=== PATIENT | female | born 1985 ===

== ENCOUNTER 2018-03-30 05:41 | Emergency (ER) | payer MEDICARE ==
[2018-03-30 06:15] LABS: Basophils # (Auto) 0.1 K/mm3 (0.0-0.1); Basophils % (Auto) 0.8 % (0.0-1.8); Eosinophils # (Auto) 0.2 K/mm3 (0.0-0.4); Eosinophils % (Auto) 2.2 % (0.0-4.3); Hematocrit 42.2 % (30.3-42.9); Hemoglobin 14.1 gm/dl (10.1-14.3); Lymphocytes % (Auto) 28.1 % (13.4-35.0); Mean Corpuscular HGB Conc 33 % (30-34); Mean Corpuscular Volume 95 fl (79-97); Monocytes # (Auto) 0.9 K/mm3 (0.0-0.8); Monocytes % (Auto) 8.7 % (0.0-7.3); Platelet Count 319 K/mm3 (140-440); Red Blood Count 4.44 M/mm3 (3.65-5.03); Red Cell Distribution Width 13.2 % (13.2-15.2)
[2018-03-30 06:31] LABS: BUN/Creatinine Ratio 14; Blood Urea Nitrogen 11 mg/dL (7-17); Hemolysis Index 6
[2018-03-30] MEDS ORDERED: DELTASONE PO ONE (07:35)
[2018-03-30] MEDS ORDERED: TORADOL IM ONE (07:35)
--- NOTE | 2018-03-30 07:40 | Emergency Department Report ---
HPI - General Chief Complaint: Back Pain/Injury Time Seen by Provider: 03/30/18 07:21 - HPI HPI: This is a 32-year-old female with no medical history who presents to ED complaining of lower back pain for the past 3 days. Patient states pain is constant in her lower back. Patient denies any recent trauma or injuries or falls. Patient states pain started around May 2017 as name intermittently hurting since then. She denies dysuria, abdominal pain, any other symptoms ED Past Medical Hx - Past Medical History Previous Medical History?: Yes Hx Congestive Heart Failure: No Hx Diabetes: No Hx Headaches / Migraines: Yes (migraines) Hx Psychiatric Treatment: Yes (Schizophrenia, bipolar) Hx Asthma: Yes (as a child) Hx COPD: No Additional medical history: schizpohrenia, bipolar - Surgical History Past Surgical History?: Yes Additional Surgical History: x 3, ectopic,bowel - Social History Smoking Status: Former Smoker Substance Use Type: None - Medications Home Medications: Home Medications Medication Instructions Recorded Confirmed Last Taken Type Lurasidone HCl [Latuda] 80 mg PO BID 08/20/13 06/07/17 06/05/17 History oxyCODONE /ACETAMINOPHEN [Percocet 1 tab PO Q4HR #45 tab 12/11/14 06/07/17 06/07/17 07:00 Rx 5/325] Aspirin/Acetaminophen/Caffeine 1 each PO PRN 06/07/17 06/07/17 06/03/17 History [Excedrin Migraine Caplet] OXcarbazepine [Trileptal] 300 mg PO BID 06/07/17 06/07/17 06/06/17 History amLODIPine [Norvasc] 5 mg PO DAILY 06/07/17 06/07/17 06/06/17 History Docusate Sodium [Colace] 100 mg PO BID PRN #60 capsule 06/09/17 Unknown Rx Oxycodone HCl/Acetaminophen 1 each PO Q6HR PRN #40 tablet 06/09/17 Unknown Rx [Percocet 7.5/325 mg] Simethicone 80 mg PO Q6H PRN #30 tab.chew 06/09/17 Unknown Rx Cyclobenzaprine [Flexeril] 10 mg PO QHS PRN #20 tablet 03/30/18 Unknown Rx Ibuprofen [Motrin 800 MG tab] 800 mg PO Q8HR PRN #30 tablet 03/30/18 Unknown Rx ED Review of Systems ROS: Stated complaint: BACK PAIN Other details as noted in HPI Comment: All other systems reviewed and negative Physical Exam - Physical Exam Vital Signs: Vital Signs 03/30/18 05:50 Temperature 99.4 F Pulse Rate 91 H Respiratory 18 Rate Blood Pressure 142/97 O2 Sat by Pulse 98 Oximetry Physical Exam: GENERAL: Alert and oriented x3, no apparent distress, Normal Gait, atraumatic. HEAD: Head is normocephalic and a-traumatic. NECK: Supple. Non edematous, No lymphadenopathy or thyromegaly. No C-spine tenderness, full range of motion LUNGS: Symetrical with respiration, No wheezing, no rales or crackles, CTAB. HEART: S1, S2 present, regular rate and rhythm without murmur, no rubs, no gallops. Non tender to palpation BACK: Full range of motion, no spinal tenderness, Tenderness to palpation of the trapezius muscles and latissimus dorsi muscles of the back NEUROLOGIC: The patient is cooperative with no focal neurologic deficits. SKIN: Warm and dry, No lesions, No ulceration or induration present. ED Course Vital Signs 03/30/18 05:50 Temperature 99.4 F Pulse Rate 91 H Respiratory 18 Rate Blood Pressure 142/97 O2 Sat by Pulse 98 Oximetry ED Medical Decision Making - Lab Data Result diagrams: 03/30/18 06:03 03/30/18 06:03 - Medical Decision Making 3-year-old female presents to ED with low back pain most likely due to lumbar radiculopathy ED course: Patient received Toradol in ED. for pain Labs are within normal limits, test negative, urinalysis 1+ bacteria, elevated WBCs mildly. Will not treat as patient has no symptoms and leukocyte esterase and nitrate is negative Vital signs are normal patient is in no acute distress Discussed with patient follow-up with primary care physician. Discussed the patient and take medications as prescribed. Patient has no neurological deficit. Patient is alert and oriented 3 and understands all instructions given. Discussed drowsiness effect of Flexeril makes her drowsy and not to operate machinery while taking flexeril - Differential Diagnosis lumbar disc herniation, lumbar radiculopathy, urinary tract infection Critical care attestation.: If time is entered above; I have spent that time in minutes in the direct care of this critically ill patient, excluding procedure time. ED Disposition Clinical Impression: Lumbar radiculopathy Disposition: TO HOME OR SELFCARE Is pt being admited?: No Does the pt Need Aspirin: No Condition: Stable Instructions: Trigger Point Pain (ED), Lumbar Radiculopathy (ED), Musculoskeletal Pain (ED) Additional Instructions: Make sure to follow up with the primary care physician as discussed. Take all your medications as you've been prescribed. If you have any worsening symptoms or develop new symptoms please return to ED immediately. Prescriptions: Cyclobenzaprine [Flexeril] 10 mg PO QHS PRN #20 tablet PRN Reason: Muscle Spasm Ibuprofen [Motrin 800 MG tab] 800 mg PO Q8HR PRN #30 tablet PRN Reason: Pain Referrals: TAHIRA ARROYO MD [Primary Care Provider] - 3-5 Days MEGA LAW MD [Staff Physician] - 3-5 Days Forms: Work/School Release Form
[2018-03-30 07:53] LABS: Bacteria,Urine 1+ /HPF (Negative); Bilirubin,Urine NEG (Negative); Blood,Urine SM (Negative); Color,Urine Yellow (Yellow); Mucus,Urine 1+ /HPF; Protein,Urine <15 mg/dL mg/dL (Negative); Urobilinogen,Urine < 2.0 mg/dL (<2.0)
[2018-03-30 08:46] VITALS: BP 153/70
== END 2018-03-30 08:38 | disposition home or self-care (01) ==
LOC: MERGE 05:41 → ED 05:41
DX: M54.16 Radiculopathy, lumbar region (principal); F31.9 Bipolar disorder, unspecified; F20.9 Schizophrenia, unspecified; G43.909 Migraine, unspecified, not intractable, without status migrainosus; J45.909 Unspecified asthma, uncomplicated; Z87.891 Personal history of nicotine dependence
CPT/HCPCS: 36415; 80048; 81001; 84703; 85025; 96372; 99283; J1885; J7512

== ENCOUNTER 2018-07-10 08:26 | Emergency (ER) | payer MEDICARE ==
[2018-07-10 08:34] VITALS: BP 151/96
--- NOTE | 2018-07-10 09:57 | Emergency Department Report ---
HPI - General Chief Complaint: Back Pain/Injury Time Seen by Provider: 07/10/18 09:33 - HPI HPI: There is [id number] female who has a history of chronic leg pain from sciatica, muscle spasms, fibromyalgia who presents ED stating that she started expressing worsening pain around 6:50 AM this morning. Patient denies any injury or trauma. Patient states that she is taking gabapentin it's not really walk while working so she stopped taking gabapentin. She denies fevers/chills nausea vomiting/dysuria Patient says this is a follow-up with her doctor in a couple weeks. ED Past Medical Hx - Past Medical History Hx Hypertension: Yes Hx Congestive Heart Failure: No Hx Diabetes: No Hx Headaches / Migraines: Yes (migraines) Hx Psychiatric Treatment: Yes (Schizophrenia, bipolar, Depression) Hx Asthma: Yes (as a child) Hx COPD: No Additional medical history: schizpohrenia, bipolar - Surgical History Additional Surgical History: x 3, ectopic,bowel - Social History Smoking Status: Former Smoker Substance Use Type: Alcohol - Medications Home Medications: Home Medications Medication Instructions Recorded Confirmed Last Taken Type Lurasidone HCl [Latuda] 80 mg PO BID 08/20/13 06/07/17 06/05/17 History oxyCODONE /ACETAMINOPHEN [Percocet 1 tab PO Q4HR #45 tab 12/11/14 06/07/17 06/07/17 07:00 Rx 5/325] Aspirin/Acetaminophen/Caffeine 1 each PO PRN 06/07/17 06/07/17 06/03/17 History [Excedrin Migraine Caplet] OXcarbazepine [Trileptal] 300 mg PO BID 06/07/17 06/07/17 06/06/17 History amLODIPine [Norvasc] 5 mg PO DAILY 06/07/17 06/07/17 06/06/17 History Docusate Sodium [Colace] 100 mg PO BID PRN #60 capsule 06/09/17 Unknown Rx Oxycodone HCl/Acetaminophen 1 each PO Q6HR PRN #40 tablet 06/09/17 Unknown Rx [Percocet 7.5/325 mg] Simethicone 80 mg PO Q6H PRN #30 tab.chew 06/09/17 Unknown Rx Cyclobenzaprine [Flexeril] 10 mg PO QHS PRN #20 tablet 03/30/18 Unknown Rx Ibuprofen [Motrin 800 MG tab] 800 mg PO Q8HR PRN #30 tablet 03/30/18 Unknown Rx Ibuprofen [Ibu] 800 mg PO Q8H PRN #20 tablet 06/07/18 Unknown Rx methOCARBAMOL [Robaxin TAB] 500 mg PO Q6H PRN #14 tablet 06/07/18 Unknown Rx Carisoprodol [Soma] 250 mg PO BID #20 tablet 07/10/18 Unknown Rx ED Review of Systems ROS: Stated complaint: RT KNEE/RT SIDE PAIN Other details as noted in HPI Comment: All other systems reviewed and negative Physical Exam - Physical Exam Vital Signs: Vital Signs 07/10/18 08:33 Temperature 98.1 F Pulse Rate 118 H Respiratory 18 Rate Blood Pressure 151/96 [Right] O2 Sat by Pulse 100 Oximetry Physical Exam: GENERAL: Alert and oriented x3, no apparent distress, Normal Gait, atraumatic. HEAD: Head is normocephalic and a-traumatic. NECK: Supple. Non edematous, No lymphadenopathy or thyromegaly. LUNGS: Symetrical with respiration, No wheezing, no rales or crackles, CTAB. HEART: S1, S2 present, regular rate and rhythm without murmur, no rubs, no gallops. Non tender to palpation BACK: Full range of motion, no spinal tenderness, Tenderness to palpation of the trapezius muscles and latissimus dorsi muscles of the back EXTREMITIES/MUSCULOSKELETAL: No cyanosis, clubbing, rash, lesions or edema. Full ROM bilaterally. UE/LE Pulses 2+ bilaterally. LE and UE 5+ strength bilaterally, NEUROLOGIC: The patient is cooperative with no focal neurologic deficits. SKIN: Warm and dry, No lesions, No ulceration or induration present. ED Course Vital Signs 07/10/18 08:33 Temperature 98.1 F Pulse Rate 118 H Respiratory 18 Rate Blood Pressure 151/96 [Right] O2 Sat by Pulse 100 Oximetry ED Medical Decision Making - Medical Decision Making 32 year-old female presents to ED with muscle spasms/sciatica ED course: Vital signs are normal patient is in no acute distress Discussed with patient follow-up with primary care physician. Discussed the patient and take medications as prescribed. Patient has no neurological deficit. Patient is alert and oriented 3 and understands all instructions given. Discussed to discontinue gabapentin if it's no longer effective and follow up with her PCP/psychiatrist Critical care attestation.: If time is entered above; I have spent that time in minutes in the direct care of this critically ill patient, excluding procedure time. ED Disposition Clinical Impression: Sciatica, Chronic back pain, Fibromyalgia Disposition: TO HOME OR SELFCARE Is pt being admited?: No Does the pt Need Aspirin: No Condition: Stable Instructions: Sciatica (ED), Lumbar Radiculopathy (ED) Additional Instructions: Make sure to follow up with the primary care physician as discussed. Take all your medications as you've been prescribed. If you have any worsening symptoms or develop new symptoms please return to ED immediately. Prescriptions: Carisoprodol [Soma] 250 mg PO BID #20 tablet Referrals: TAHIRA ARROYO MD [Primary Care Provider] - 3-5 Days Forms: Work/School Release Form(ED) Time of Disposition: 10:04
[2018-07-10] MEDS ORDERED: TORADOL IM ONE (10:19)
[2018-07-10] MEDS ORDERED: DELTASONE PO ONE (10:19)
== END 2018-07-10 10:35 | disposition home or self-care (01) ==
LOC: MERGE 08:26 → ED 08:26
DX: G89.29 Other chronic pain (principal); M54.9 Dorsalgia, unspecified; M54.30 Sciatica, unspecified side; M79.7 Fibromyalgia; I10 Essential (primary) hypertension; G43.909 Migraine, unspecified, not intractable, without status migrainosus; J45.909 Unspecified asthma, uncomplicated; Z87.891 Personal history of nicotine dependence; Z79.82 Long term (current) use of aspirin
CPT/HCPCS: 96372; 99282; J1885; J7512

== ENCOUNTER 2018-07-12 12:06 | Emergency (ER) | payer MEDICARE ==
--- NOTE | 2018-07-12 12:20 | Emergency Department Report ---
Blank Doc - Documentation Documentation: 32 y/o female comes in for chronic pain that has been going on for years. Is on Gabapentin. Is follow up by mental health provider for bipolar.
[2018-07-12] MEDS ORDERED: CATAPRES PO ONE (13:02)
[2018-07-12] MEDS ORDERED: DELTASONE PO ONE (13:02)
[2018-07-12] MEDS ORDERED: SOMA PO ONE (13:03)
--- NOTE | 2018-07-12 13:04 | Emergency Department Report ---
ED Back Pain/Injury HPI - General Chief Complaint: Pain General Stated Complaint: BODY PAIN Time Seen by Provider: 07/12/18 12:57 Source: patient Limitations: No Limitations - History of Present Illness Initial Comments: Patient is a 32-year-old -[place] female who is well known to the emergency room. Please see medical decision-making section with cross referencing MRN account. Patient was seen here [address] Escalona given Soma for her chronic pain. She initially told me she did not get the medicine filled because of insurance coverage. However, she is a private pay patient and does not have insurance. Upon looking in the PMD she did in fact get the Soma medication and paid for out of pocket. Which according to the PMD she does often. Patient states that when confronted with the PMD that she didn't get it filled just does not working. She states she's been doubling up on the doses. This is in addition to her home Ativan and Restoril which she did not tell me she was taking. She did tell me she was taking other psych meds including Zoloft and Abilify: Along with gabapentin. Appears that there is some drug-seeking behavior with this patient who has been diagnosed with fibromyalgia. When asked by home she becomes very histrionic intelligible coming to the emergency room, Dr. Perez and Dr. Ashby. It sounds like she may have seen doctors in the past that have fired her as a patient due to her pain. Referred PMD for years history of narcotic use. However this year there is no narcotics on record in the database. She does have benzos. Them concerned with her muscle relaxers and benzos that the additive effect could be detrimental. I explained this to the patient. She states Flexeril does not work. She once him on a higher dose. She's had Robaxin in the past and it don't work. Patient denies any trauma. She denies dysuria. She has no CVA tenderness. Her vital signs are stable. She has no fever. No tachycardia or hypotension. Infection was hypertensive on admission but on recheck her blood pressure was down. Patient is ambulatory. She comes to the ER with her who is her ride today. Also coming the patient or HER-2 small children. The third 9-year-old is at school. 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 Complaint: back pain -: Gradual, year(s) Similar Symptoms Previously: Yes Place: home Associated Symptoms: denies other symptoms - Related Data Previous Rx's Medication Instructions Recorded Last Taken Type predniSONE [Deltasone] 20 mg PO DAILY #5 tablet 07/12/18 Unknown Rx Allergies Allergy/AdvReac Type Severity Reaction Status Date / Time No Known Allergies Allergy Verified 07/12/18 13:04 ED Review of Systems ROS: Stated complaint: BODY PAIN Other details as noted in HPI Comment: All other systems reviewed and negative ED Past Medical Hx - Past Medical History FIBROMyalgia; bipolar, htn, chronic pain Family history: no significant family history ED Back Pain Physical Exam - Exam General: Vital signs noted. No distress. Alert and acting appropriately. WDWN patient in NAD VS per RN flow sheet Alert and oriented to person, place and time. S1-S2. No S3 or S4. No systolic or diastolic murmur. No JVD. No pitting edema. Lungs clear to auscultation bilaterally anteriorly and posteriorly. Abdomen soft nontender bowel sounds 4. No CVA tenderness Moves all extremities well. Back/Abdomen: No Abdominal Tenderness, No Perithoracic Tenderness, No Perilumbar Tenderness, No Sacroiliac Tenderness, No Flank Tenderness, No Straight Leg Raise Pain Neuro: Yes Normal Sensation, Yes Normal DTR's, Yes Normal Gait, No Motor We akness ED Course Vital Signs 07/12/18 12:18 Temperature 98.7 F Pulse Rate 114 H Respiratory 18 Rate Blood Pressure 158/101 O2 Sat by Pulse 100 Oximetry ED Medical Decision Making - Medical Decision Making Vital Signs 07/12/18 07/12/18 07/12/18 12:18 13:08 13:09 Temperature 98.7 F Pulse Rate 114 H 121 H 121 H Respiratory 18 Rate Blood Pressure 158/101 137/90 Blood Pressure 137/90 [Left] O2 Sat by Pulse 100 Oximetry a/c pain-- see HPI Pt's BP was rechecked and it is down upon arrival to [facility] [place] on zoloft, abilify, marry, and norvasc; additional meds ativan and benzos found in [place] PMD initially stated she did not get soma filled 2 d ago because her insurance did not pay for it; but when confronted with [place] PMD she states she did but the dose is not enough. She was given 20 soma 250 mg less than 48 hours ago Pt follows with psych- Dr Garcia She has no PCP but sounds like she has been seen by Dr Perez in the past and then fired by other MD's. She is on benzo's per PMD as of 03/13 but has a long history of narcotic refills. Given toradol, depomedrol, and flexeril combo for pain. Pt instructed we would not give her narcs or more soma. She does not want flexeril because it dont work- discussed the effect of all of these meds combined. She has her here for her "ride." I suspect pt gave wrong ID up front for her accounts were noted to be diff than when in triage- registration aware and will merge accounts. [id number] Pt being dc home with prednisone and referral to PCP I've discussed with pt that she needs one doctor to follow her so that she is properly worked up and treated. Critical care attestation.: If time is entered above; I have spent that time in minutes in the direct care of this critically ill patient, excluding procedure time. ED Disposition Clinical Impression: Chronic pain, Obesities, morbid, Bipolar 1 disorder Disposition: DC-01 TO HOME OR SELFCARE Is pt being admited?: No Does the pt Need Aspirin: No Condition: Stable Instructions: Chronic Back Pain (ED) Additional Instructions: DIET TOLERATED MEDS ORDERED TODAY IN ER FOLLOW INSTRUCTIONS ON THE BOTTLE FOLLOW UP PCP WITHIN 48 HOURS TO ENSURE YOU ARE GETTING BETTER ACTIVITY TOLERATED MOTRIN OR TYLENOL FOR PAIN OR FEVER RETURN TO THE ER FOR WORSENING SYMPTOMS NOT RELIEVED BY YOUR MEDICATIONS. CONTINUE HOME ZOLOFT ABILIFY NORVASC GABAPEN. SOMA Prescriptions: predniSONE [Deltasone] 20 mg PO DAILY #5 tablet Referrals: MELI HUERTA DO [Staff Physician] - 3-5 Days Time of Disposition: 13:12
[2018-07-12 13:09] VITALS: BP 137/90
[2018-07-12] MEDS ORDERED: FLEXERIL PO ONE (13:11)
[2018-07-12] MEDS ORDERED: TORADOL IM ONE (13:11)
[2018-07-12] MEDS ORDERED: DEPO-Medrol IM ONE (13:11)
== END 2018-07-12 14:25 | disposition home or self-care (01) ==
LOC: ED 12:06
DX: M79.18 Myalgia, other site (principal); G89.29 Other chronic pain; E66.01 Morbid (severe) obesity due to excess calories; F31.9 Bipolar disorder, unspecified
CPT/HCPCS: 96372; 99282; J1040; J1885

== ENCOUNTER 2018-08-18 08:14 | Emergency (ER) | payer MEDICARE ==
[2018-08-18 08:19] VITALS: BP 131/82
--- NOTE | 2018-08-18 08:46 | Emergency Department Report ---
HPI - General Chief Complaint: Shoulder Injury Time Seen by Provider: 08/18/18 08:29 - HPI HPI: 42-year-old -[place] female presents to the emergency department with complaint of some acute on chronic back and musculoskeletal pains. Patient says that she has been moving houses recently and has had some increased pain to the upper right back, between the shoulder and neck. She also has some pain down the right side of her back that she says is "always there." The patient presents with an MRI done of the lumbar spine showing some degenerative changes. She also has a piece of paper that shows she is due to follow-up on August 24 at a pain clinic for some type of procedure that she says is a injection. She has a past medical history of migraine headaches, hypertension, schizophrenia and bipolar disorder. Patient has been seeing some doctors to [facility] who prescribed some tramadol which she says has not been helping with her pain. Despite the back pain, she has no problems with bowel or bladder, numbness or paresthesias, or any neurological deficits. ED Past Medical Hx - Past Medical History Previous Medical History?: Yes Hx Hypertension: Yes Hx Congestive Heart Failure: No Hx Diabetes: No Hx Headaches / Migraines: Yes (migraines) Hx Psychiatric Treatment: Yes (Schizophrenia, bipolar, Depression) Hx Asthma: Yes (as a child) Hx COPD: No Additional medical history: schizpohrenia, bipolar - Surgical History Past Surgical History?: Yes Additional Surgical History: x 3, ectopic,bowel - Social History Smoking Status: Never Smoker Substance Use Type: None - Medications Home Medications: Home Medications Medication Instructions Recorded Confirmed Last Taken Type Lurasidone HCl [Latuda] 80 mg PO BID 08/20/13 06/07/17 06/05/17 History oxyCODONE /ACETAMINOPHEN [Percocet 1 tab PO Q4HR #45 tab 12/11/14 06/07/17 06/07/17 07:00 Rx 5/325] Aspirin/Acetaminophen/Caffeine 1 each PO PRN 06/07/17 06/07/17 06/03/17 History [Excedrin Migraine Caplet] OXcarbazepine [Trileptal] 300 mg PO BID 06/07/17 06/07/17 06/06/17 History amLODIPine [Norvasc] 5 mg PO DAILY 06/07/17 06/07/17 06/06/17 History Docusate Sodium [Colace] 100 mg PO BID PRN #60 capsule 06/09/17 Unknown Rx Oxycodone HCl/Acetaminophen 1 each PO Q6HR PRN #40 tablet 06/09/17 Unknown Rx [Percocet 7.5/325 mg] Simethicone 80 mg PO Q6H PRN #30 tab.chew 06/09/17 Unknown Rx Cyclobenzaprine [Flexeril] 10 mg PO QHS PRN #20 tablet 03/30/18 Unknown Rx Ibuprofen [Motrin 800 MG tab] 800 mg PO Q8HR PRN #30 tablet 03/30/18 Unknown Rx Ibuprofen [Ibu] 800 mg PO Q8H PRN #20 tablet 06/07/18 Unknown Rx methOCARBAMOL [Robaxin TAB] 500 mg PO Q6H PRN #14 tablet 06/07/18 Unknown Rx Carisoprodol [Soma] 250 mg PO BID #20 tablet 07/10/18 Unknown Rx predniSONE [Deltasone] 20 mg PO DAILY #5 tablet 07/12/18 Unknown Rx Cyclobenzaprine [Flexeril] 10 mg PO TID PRN #10 tablet 08/18/18 Unknown Rx ED Review of Systems ROS: Stated complaint: R SHOULDER PAIN Other details as noted in HPI Comment: All other systems reviewed and negative Constitutional: denies: chills, fever Respiratory: denies: cough, shortness of breath Cardiovascular: denies: chest pain, palpitations Musculoskeletal: back pain, myalgia Skin: denies: rash, lesions Neurological: denies: headache, weakness Physical Exam - Physical Exam Vital Signs: Vital Signs 08/18/18 08:17 Temperature 97.8 F Pulse Rate 93 H Respiratory 18 Rate Blood Pressure 131/82 O2 Sat by Pulse 100 Oximetry Physical Exam: GENERAL: The patient is well-developed well-nourished. HENT: Normocephalic. Atraumatic. Patient has moist mucous membranes. EYES: Extraocular motions are intact. NECK: Supple. Trachea is midline. CHEST/LUNGS: Clear to auscultation. There is no respiratory distress noted. HEART/CARDIOVASCULAR: Regular. There is no tachycardia. There is no murmur. ABDOMEN: Obese habitus. SKIN: Skin is warm and dry. NEURO: The patient is awake, alert, and oriented. The patient is cooperative. The patient has no focal neurologic deficits. The patient has normal speech. MUSCULOSKELETAL: There is some tenderness to palpation along the right trapezius muscle with some tight musculature. There is no limitation range of motion. There is no evidence of acute injury. BACK: No midline thoracic or lumbar tenderness to palpation, step-off or deformity. ED Course Vital Signs 08/18/18 08:17 Temperature 97.8 F Pulse Rate 93 H Respiratory 18 Rate Blood Pressure 131/82 O2 Sat by Pulse 100 Oximetry ED Medical Decision Making - Medical Decision Making Patient presents to the emergency department with some acute on chronic pain. The area of her current complaint is the right trapezius muscle between the neck and the right shoulder. She is seen with range of motion of all of her extremities. No recent trauma or any obvious deformity. She has no midline back tenderness to palpation, step-off or deformity. These reasons I did not feel that any imaging was necessary at this time. She has previously had some imaging done and is set up to go to a pain clinic for what appears to be an injection. The patient does have some tight musculature and therefore will be given a small dose of a muscle relaxer. She understands the sedating nature of this medication and that it cannot be mixed with any alcohol, taken while drivi ng, watching children, taken at work, and cannot be mixed with any other medications that are narcotic or sedating. She was given a referral for orthopedics. She will return to the ER with any worsening of her symptoms or any acute distress. - Differential Diagnosis muscle spasm, osteoarthritis, dislocation Critical Care Time: No Critical care attestation.: If time is entered above; I have spent that time in minutes in the direct care of this critically ill patient, excluding procedure time. ED Disposition Clinical Impression: Muscle spasm, Musculoskeletal pain Disposition: DC-01 TO HOME OR SELFCARE Is pt being admited?: No Condition: Stable Instructions: Musculoskeletal Pain (ED), Muscle Spasm (ED) Additional Instructions: Please follow-up with your primary care physician and at the pain clinic, as previously scheduled. I am also giving you a referral for a local orthopedic group, [facility], to follow up regarding your back and musculoskeletal pains. Return to the emergency Department with any worsening of your symptoms or any acute distress. You have been prescribed a medication that is sedating and therefore should not be taken prior to driving, working, and responsible for children and in no way should be mixed with alcohol of any quantity. Do not mix this medication within the other narcotic or sedating medications as it can cause respiratory depression. Prescriptions: Cyclobenzaprine [Flexeril] 10 mg PO TID PRN #10 tablet PRN Reason: Muscle Spasm Referrals: [facility] [Provider Group] - 2-3 Days Time of Disposition: 08:46
== END 2018-08-18 08:53 | disposition home or self-care (01) ==
LOC: ED 08:14
DX: M62.838 Other muscle spasm (principal); M25.511 Pain in right shoulder; I10 Essential (primary) hypertension; G43.909 Migraine, unspecified, not intractable, without status migrainosus; J45.909 Unspecified asthma, uncomplicated; Z79.82 Long term (current) use of aspirin; Z79.899 Other long term (current) drug therapy
CPT/HCPCS: 99282

== ENCOUNTER 2018-11-04 09:02 | Emergency (ER) | payer MEDICARE ==
[2018-11-04 09:09] VITALS: BP 148/83
--- NOTE | 2018-11-04 09:50 | Emergency Department Report ---
- General Chief Complaint: Earache Stated Complaint: SHOULDER/JOINT PAIN Time Seen by Provider: 11/04/18 09:50 Source: patient Mode of arrival: Ambulatory Limitations: No Limitations - History of Present Illness MD Complaint: cough, rhinorrhea, nasal congestion, other (right ear ache) -: Gradual, days(s) (3 approximately) Severity: mild Severity scale (0 -10): 1 Quality: aching Consistency: intermittent Improves With: nothing Worsens With: nothing Context: sick contacts (coughing runny nose) Associated Symptoms: myalgias, rhinorrhea, nasal congestion, cough, hoarseness, ear pain (right ear). denies: fever, chills, headache, sore throat, stiff neck, chest pain, shortness of breath, abdominal pain, nausea, vomiting, diarrhea, rash, confusion, right sweats, weight loss, epistaxis - Related Data Home Medications Medication Instructions Recorded Confirmed Last Taken Lurasidone HCl [Latuda] 80 mg PO BID 08/20/13 06/07/17 06/05/17 Aspirin/Acetaminophen/Caffeine 1 each PO PRN 06/07/17 06/07/17 06/03/17 [Excedrin Migraine Caplet] OXcarbazepine [Trileptal] 300 mg PO BID 06/07/17 06/07/17 06/06/17 amLODIPine [Norvasc] 5 mg PO DAILY 06/07/17 06/07/17 06/06/17 Previous Rx's Medication Instructions Recorded Last Taken Type oxyCODONE /ACETAMINOPHEN [Percocet 1 tab PO Q4HR #45 tab 12/11/14 06/07/17 07:00 Rx 5/325] Docusate Sodium [Colace] 100 mg PO BID PRN #60 capsule 06/09/17 Unknown Rx Oxycodone HCl/Acetaminophen 1 each PO Q6HR PRN #40 tablet 06/09/17 Unknown Rx [Percocet 7.5/325 mg] Simethicone 80 mg PO Q6H PRN #30 tab.chew 06/09/17 Unknown Rx Cyclobenzaprine [Flexeril] 10 mg PO QHS PRN #20 tablet 03/30/18 Unknown Rx Ibuprofen [Motrin 800 MG tab] 800 mg PO Q8HR PRN #30 tablet 03/30/18 Unknown Rx Ibuprofen [Ibu] 800 mg PO Q8H PRN #20 tablet 06/07/18 Unknown Rx methOCARBAMOL [Robaxin TAB] 500 mg PO Q6H PRN #14 tablet 06/07/18 Unknown Rx Carisoprodol [Soma] 250 mg PO BID #20 tablet 07/10/18 Unknown Rx predniSONE [Deltasone] 20 mg PO DAILY #5 tablet 07/12/18 Unknown Rx Cyclobenzaprine [Flexeril] 10 mg PO TID PRN #10 tablet 08/18/18 Unknown Rx Cetirizine HCl [ZyrTEC 10mg cap] 10 mg PO DAILY #14 capsule 11/04/18 Unknown Rx Ibuprofen [Motrin 600 MG tab] 600 mg PO Q8H PRN #18 tablet 11/04/18 Unknown Rx Allergies Allergy/AdvReac Type Severity Reaction Status Date / Time No Known Allergies Allergy Verified 07/30/18 08:03 ED Review of Systems ROS: Stated complaint: SHOULDER/JOINT PAIN Other details as noted in HPI Other: GENERAL: No weight change, fatigue, fever, chills, or night sweats SKIN: No changes in skin or hair, no itching, no rashes, no jaundice HEAD: No trauma, headache, or visual changes EYES: No blurriness, tearing, itching, acute visual loss, conjunctival discoloration, or scleral icterus EARS: Right ear ache. No hearing loss, tinnitus, vertigo, NOSE: rhinorrhea, stuffiness. No sneezing, itching, or epistaxis MOUTH: No bleeding gums, hoarseness, sore throat, or swelling CARDIAC: No new murmur, chest pain, palpitations, dyspnea on exertion, orthopnea, PND, or edema RESPIRATORY: No shortness of breath, wheeze, cough, sputum production, hemoptysis, pneumonia, asthma, bronchitis, or emphysema GI: No change in appetite, nausea, vomiting, dysphagia, diarrhea, constipation, hematemesis, melena, hematochezia, or abdominal pain URINARY: No frequency, urgency, polyuria, dysuria, hematuria, or incontinence MUSCULOSKELETAL: No muscle weakness, joint stiffness, decrease in range of motion, redness, swelling NEUROLOGIC: No headache, loss of sensation, numbness, tingling, tremors, weakne ss, paralysis, seizures HEMATOLOGIC: No anemia, easy bruising, bleeding, petechiae, or purpura ENDOCRINE: No hot or cold intolerance, sweating, polyuria, polydipsia or, polyphagia no thyroid problems PSYCHIATRIC: No change in mood, no anxiety, no depression ED Past Medical Hx - Past Medical History Hx Hypertension: Yes Hx Congestive Heart Failure: No Hx Diabetes: No Hx Headaches / Migraines: Yes (migraines) Hx Psychiatric Treatment: Yes (Schizophrenia, bipolar, Depression) Hx Asthma: Yes (as a child) Hx COPD: No Additional medical history: schizpohrenia, bipolar - Surgical History Additional Surgical History: x 3, ectopic,bowel - Social History Smoking Status: Never Smoker Substance Use Type: None - Medications Home Medications: Home Medications Medication Instructions Recorded Confirmed Last Taken Type Lurasidone HCl [Latuda] 80 mg PO BID 08/20/13 06/07/17 06/05/17 History oxyCODONE /ACETAMINOPHEN [Percocet 1 tab PO Q4HR #45 tab 12/11/14 06/07/17 06/07/17 07:00 Rx 5/325] Aspirin/Acetaminophen/Caffeine 1 each PO PRN 06/07/17 06/07/17 06/03/17 History [Excedrin Migraine Caplet] OXcarbazepine [Trileptal] 300 mg PO BID 06/07/17 06/07/17 06/06/17 History amLODIPine [Norvasc] 5 mg PO DAILY 06/07/17 06/07/17 06/06/17 History Docusate Sodium [Colace] 100 mg PO BID PRN #60 capsule 06/09/17 Unknown Rx Oxycodone HCl/Acetaminophen 1 each PO Q6HR PRN #40 tablet 06/09/17 Unknown Rx [Percocet 7.5/325 mg] Simethicone 80 mg PO Q6H PRN #30 tab.chew 06/09/17 Unknown Rx Cyclobenzaprine [Flexeril] 10 mg PO QHS PRN #20 tablet 03/30/18 Unknown Rx Ibuprofen [Motrin 800 MG tab] 800 mg PO Q8HR PRN #30 tablet 03/30/18 Unknown Rx Ibuprofen [Ibu] 800 mg PO Q8H PRN #20 tablet 06/07/18 Unknown Rx methOCARBAMOL [Robaxin TAB] 500 mg PO Q6H PRN #14 tablet 06/07/18 Unknown Rx Carisoprodol [Soma] 250 mg PO BID #20 tablet 07/10/18 Unknown Rx predniSONE [Deltasone] 20 mg PO DAILY #5 tablet 07/12/18 Unknown Rx Cyclobenzaprine [Flexeril] 10 mg PO TID PRN #10 tablet 08/18/18 Unknown Rx Cetirizine HCl [ZyrTEC 10mg cap] 10 mg PO DAILY #14 capsule 11/04/18 Unknown Rx Ibuprofen [Motrin 600 MG tab] 600 mg PO Q8H PRN #18 tablet 11/04/18 Unknown Rx ED Physical Exam - General Limitations: No Limitations - Other Other exam information: GENERAL: Patient in no acute distress HEAD: Normocephalic, atraumatic EYES: PERRLA, EOM intact, no scleral icterus, no conjunctival hemorrhage, visual argueta and acuity wnl NOSE: Turbinate erythema and swelling bilaterally, patient clearing her nose during exam. No tenderness, sinus tenderness MOUTH: No erythema, bleeding, exudate HEART: Regular rate and rhythm, no murmur, S1-S2 are auscultated, pulses are symmetric LUNGS: Bilateral breath sounds, No tachypnea, No retractions, No wheezing, rales, rhonchi ABDOMEN: Normal bowel sounds, abdomen soft, no tenderness, no rebound, no guarding, no distention, no masses, no CVA tenderness MUSCULOSKELETAL: Normal joint range of motion, no redness, no swelling, no tenderness NEUROLOGIC: GCS 15, Alert and Oriented x3, Cranial nerves intact, normal sensation, normal strength, no cerebellar deficit, NIHSS 0 PSYCHIATRIC: No homicidal or suicidal ideation, no anxiety, no depression, no hallucinations SKIN: Skin is warm and dry, no wounds, no rashes EARS: No tenderness, discharge, tympanic membrane wnl ED Course Vital Signs 11/04/18 09:08 Temperature 98.4 F Pulse Rate 95 H Respiratory 16 Rate Blood Pressure 148/83 [Left] O2 Sat by Pulse 95 Oximetry ED Medical Decision Making - Medical Decision Making Patient comfortable. Plan treat symptomatically for likely URI. Plan discharge with outpatient follow up. Return if any worsening. Critical care attestation.: If time is entered above; I have spent that time in minutes in the direct care of this critically ill patient, excluding procedure time. ED Disposition Clinical Impression: URI (upper respiratory infection) Qualifiers: URI type: unspecified URI Qualified Code(s): J06.9 - Acute upper respiratory infection, unspecified Disposition: DC- TO HOME OR SELFCARE Is pt being admited?: No Condition: Stable Instructions: Upper Respiratory Infection (ED) Prescriptions: Ibuprofen [Motrin 600 MG tab] 600 mg PO Q8H PRN #18 tablet PRN Reason: Pain Cetirizine HCl [ZyrTEC 10mg cap] 10 mg PO DAILY #14 capsule Referrals: RODRIGUEZ YAÑEZ MD [Primary Care Provider] - 2-3 Days Time of Disposition: 09:52
[2018-11-04] MEDS ORDERED: CLARITIN PO ONE (09:57)
[2018-11-04] MEDS ORDERED: IBUPROFEN PO ONE (09:57)
== END 2018-11-04 10:02 | disposition home or self-care (01) ==
LOC: ED 09:02
DX: J06.9 Acute upper respiratory infection, unspecified (principal); I10 Essential (primary) hypertension; G43.909 Migraine, unspecified, not intractable, without status migrainosus; F31.9 Bipolar disorder, unspecified; F20.9 Schizophrenia, unspecified; J45.909 Unspecified asthma, uncomplicated; Z79.82 Long term (current) use of aspirin; Z79.899 Other long term (current) drug therapy
CPT/HCPCS: 99282